=== PATIENT | female | born 1995 | race Caucasian/White ===

== ENCOUNTER 2024-09-10 21:49 | Emergency (ER) | payer OTHER ==
[~2024-09-10] VITALS: Ht 152.4 cm; Wt 90.5 kg
[2024-09-10 22:25] VITALS: BP 139/78; PULSE 110; RESP 20; TEMP 98.6; O2SAT 100
[2024-09-10] MEDS: ACETAMINOPHEN 500 MG TABLET PO ONE (22:58)
[2024-09-10] MEDS: IBUPROFEN 400 MG TABLET PO ONE (22:58)
== END 2024-09-10 23:12 | disposition home or self-care (01) ==
LOC: EMS 21:55
DX: S86.112A Strain of other muscle(s) and tendon(s) of posterior muscle group at lower leg level, left leg, initial encounter (principal); X50.1XXA Overexertion from prolonged static or awkward postures, initial encounter; Y93.66 Activity, soccer; Y92.89 Other specified places as the place of occurrence of the external cause; Y99.8 Other external cause status
CPT/HCPCS: 99283